=== PATIENT | female | born 1995 | race Caucasian/White ===

== ENCOUNTER 2018-08-19 03:44 | Emergency (ER) | payer SELFPAY ==
[2018-08-19] MEDS: MINERAL OIL 30ML CUP PO (04:48)
== END 2018-08-19 05:49 | disposition home or self-care (01) ==
LOC: FTE 03:44
DX: T16.1XXA Foreign body in right ear, initial encounter (principal); H92.01 Otalgia, right ear; X58.XXXA Exposure to other specified factors, initial encounter; Y92.9 Unspecified place or not applicable
CPT/HCPCS: 69200; 99282-25